=== PATIENT | female | born 1955 | race Caucasian/White ===

== ENCOUNTER 2018-02-28 11:15 | Day surgery (SDC) | payer MEDICAID ==
[~2018-02-28] VITALS: Ht 154.9 cm; Wt 90.0 kg
[2018-02-28] VITALS (7 sets, daily range): BP systolic 136–189; BP diastolic 74–111
[~2018-02-28 11:15] MED LIST: AMOX-422 PO; FLUT1DIS4 INH; NO HOME MEDS; PRED10TA23 PO; famotidine 20mg tablet PO ONE; ringers solution, lacted 1,000 ML IV SCH
[2018-02-28] MEDS ORDERED: cefazolin/dext.iso 2gm/100 ML IV ONE (11:52)
[2018-02-28] MEDS ORDERED: acetaminophen 325mg tablet PO PRN (12:35)
[2018-02-28 13:21] LABS: BASOPHILS % (AUTO) 0.1 % (0-1); EOSINOPHILS # (AUTO) 0.1 X10'3 (0-0.9); EOSINOPHILS % (AUTO) 1.4 % (0-6); LYMPHOCYTES % (AUTO) 9.7 % (21-51); MEAN CORPUSCULAR HEMOGLOBIN 27.7 PG (27.0-31.0); MEAN CORPUSCULAR HGB CONC 32.3 % (33.0-36.5); MEAN PLATELET VOLUME 8.9 FL (7.4-10.4); MONOCYTES # (AUTO) 0.2 X10'3 (0-0.9); MONOCYTES % (AUTO) 1.7 % (2-12); NEUTROPHILS # (AUTO) 8.8 X10'3 (1.8-7.7); NEUTROPHILS % (AUTO) 87.1 % (42-75); PRE OP HEMATOCRIT 44.4 % (35.0-45.0); PRE OP HEMOGLOBIN 14.3 g/dL (12.0-16.0); PRE OP PLATELET COUNT 222 X10'3 (140-440); RED BLOOD COUNT 5.16 X10'6 (4.20-5.60); RED CELL DISTRIBUTION WIDTH 19.3 % (11.5-14.5)
[2018-02-28 13:36] LABS: ANISOCYTOSIS 2+; LARGE PLATELETS FEW; PLATELET ESTIMATE NORMAL
[2018-02-28 13:39] LABS: ALBUMIN 3.2 G/DL (3.4-5.0); ALBUMIN/GLOBULIN RATIO 0.8 (1.1-1.5); ALKALINE PHOSPHATASE 102 IU/L (46-116); BLOOD UREA NITROGEN 20 MG/DL (7-18); BUN/CREATININE RATIO 20.8 (6.6-38.0); CALCIUM 8.6 MG/DL (8.5-10.1); CHLORIDE 102 MMOL/L (99-107); CREATININE 0.96 MG/DL (0.40-0.90); PRE OP ALT 27 U/L (30-65); PRE OP ANION GAP 7 (8-16); PRE OP AST 16 U/L (10-37); PRE OP BILIRUB, TOTAL 0.8 MG/DL (0.0-1.0); PRE OP POTASSIUM 4.3 MMOL/L (3.4-5.1); PRE OP SODIUM 139 MMOL/L (135-145); TOTAL CARBON DIOXIDE 30.2 MMOL/L (24-32); eGFR 59 ML/MIN
[2018-02-28 13:41] LABS: PRE OP GLUCOSE 207 MG/DL (70-104)
[2018-02-28] MEDS ORDERED: LIDOcaine 1% 30ml preserv. free vial ONE (13:58)
[2018-02-28] MEDS ORDERED: ringers solution, lacted 1,000 ML IV SCH (14:19)
[2018-02-28] MEDS ORDERED: fentaNYL/PF 50MCG/1 ML 2ML syringe IV PRN ×2 (14:20)
[2018-02-28] MEDS ORDERED: labetalol 20mg/4ml (5mg/ml) syringe IV PRN (14:20)
[2018-02-28] MEDS ORDERED: hydrALAZINE 20mg/ml inj. IV PRN (14:20)
[2018-02-28] MEDS ORDERED: meperidine/PF 25mg/ml syringe IV PRN ×2 (14:20)
[2018-02-28] MEDS ORDERED: ondansetron/PF 4mg/2ml inj IV PRN (14:20)
[2018-02-28] MEDS ORDERED: fentaNYL/PF 50MCG/1 ML 2ML syringe ONE (14:22)
[2018-02-28] MEDS ORDERED: BUPIVAcaine/PF 2.5mg/ml (0.25%) 10ml vial ONE (14:22)
[2018-02-28] MEDS ORDERED: LIDOcaine 2% (20mg/ml) 5ml vial ONE (14:22)
[2018-02-28] MEDS ORDERED: propofol inj 20 ML IV ONE (14:22)
[2018-02-28] MEDS ORDERED: midazolam 2 mg/2 ml injection ONE (14:22)
[2018-02-28] MEDS ORDERED: dexamethasone sod phosphate 10mg/ml inj ONE (14:31)
[2018-02-28] MEDS ORDERED: sevoflurane 250ml liquid IH ONE (14:31)
[2018-02-28] MEDS ORDERED: ondansetron/PF 4mg/2ml inj ONE (14:54)
== END 2018-02-28 16:23 | disposition home or self-care (01) ==
LOC: PAS 11:15
PROVIDERS: ATTEND Surgery
DX: M31.6 Other giant cell arteritis (principal); J44.9 Chronic obstructive pulmonary disease, unspecified; E66.9 Obesity, unspecified; I25.10 Atherosclerotic heart disease of native coronary artery without angina pectoris; I25.2 Old myocardial infarction; K21.9 Gastro-esophageal reflux disease without esophagitis; L40.50 Arthropathic psoriasis, unspecified; I10 Essential (primary) hypertension; I34.1 Nonrheumatic mitral (valve) prolapse; F41.8 Other specified anxiety disorders; Z86.74 Personal history of sudden cardiac arrest; Z87.01 Personal history of pneumonia (recurrent); Z87.09 Personal history of other diseases of the respiratory system; Z85.41 Personal history of malignant neoplasm of cervix uteri; Z79.2 Long term (current) use of antibiotics; Z68.37 Body mass index [BMI] 37.0-37.9, adult; Z90.710 Acquired absence of both cervix and uterus; Z90.89 Acquired absence of other organs; Z86.69 Personal history of other diseases of the nervous system and sense organs; Z87.891 Personal history of nicotine dependence; Z88.5 Allergy status to narcotic agent; Z91.048 Other nonmedicinal substance allergy status; Z79.899 Other long term (current) drug therapy; Z98.890 Other specified postprocedural states
CPT/HCPCS: 36415; 37609; 80053; 85025; 93005; A6258; J0690; J1100; J2001; J2250; J2405; J2704; J3010; J3490; A6251; A7000; J7120

== ENCOUNTER 2019-06-14 10:59 | Day surgery (SDC) | payer MEDICAID ==
[~2019-06-14] VITALS: Ht 154.9 cm; Wt 91.1 kg
[~2019-06-14 10:59] MED LIST changes: -famotidine 20mg tablet PO ONE; -ringers solution, lacted 1,000 ML IV SCH
[2019-06-14] MEDS ORDERED: normal saline 1000ml 1,000 ML IV PRN (11:25)
[2019-06-14] MEDS ORDERED: LORA-660 PO (11:28)
[2019-06-14] MEDS ORDERED: METF-438 PO (11:29)
[2019-06-14] MEDS ORDERED: PRED1TAB PO (11:31)
[2019-06-14] MEDS ORDERED: METH2.5T PO (11:32)
[2019-06-14] MEDS ORDERED: LORA-269 PO (11:35)
[2019-06-14] MEDS ORDERED: FOLIC ACID PO (11:41)
[2019-06-14] MEDS ORDERED: AMA1T PO (11:41)
[2019-06-14] MEDS ORDERED: ZOLP5TAB8 PO (11:42)
[2019-06-14] MEDS ORDERED: ADV50250 IH (11:43)
[2019-06-14 11:45] VITALS: BP 142/71
[2019-06-14 11:45] LABS: BASOPHILS # (AUTO) 0.1 X10'3 (0-0.2); BASOPHILS % (AUTO) 0.6 % (0-1); EOSINOPHILS # (AUTO) 0.1 X10'3 (0-0.9); EOSINOPHILS % (AUTO) 0.7 % (0-6); HEMATOCRIT 42.5 % (35.0-45.0); HEMOGLOBIN 14.5 g/dl (12.0-16.0); LYMPHOCYTES # (AUTO) 1.4 X10'3 (1.1-4.8); LYMPHOCYTES % (AUTO) 13.9 % (21-51); MEAN CORPUSCULAR HEMOGLOBIN 30.5 PG (27.0-31.0); MEAN CORPUSCULAR HGB CONC 34.1 g/dL (33.0-36.5); MEAN CORPUSCULAR VOLUME 89.4 FL (78-98); MEAN PLATELET VOLUME 8.4 FL (7.4-10.4); MONOCYTES # (AUTO) 0.6 X10'3 (0-0.9); MONOCYTES % (AUTO) 5.5 % (2-12); NEUTROPHILS # (AUTO) 8.1 X10'3 (1.8-7.7); NEUTROPHILS % (AUTO) 79.3 % (42-75); PLATELET COUNT 305 X10'3 (140-440); RED BLOOD COUNT 4.75 X10'6 (4.20-5.60); RED CELL DISTRIBUTION WIDTH 14.2 % (11.5-14.5); WHITE BLOOD COUNT 10.2 X10'3 (4.5-11.0)
[2019-06-14 11:53] LABS: ALBUMIN 3.2 G/DL (3.4-5.0); ANION GAP 8 (8-16); BLOOD UREA NITROGEN 14 MG/DL (7-18); BUN/CREATININE RATIO 15.9 (6.6-38.0); CALCIUM 8.7 MG/DL (8.5-10.1); CHLORIDE 107 MMOL/L (99-107); CREATININE 0.88 MG/DL (0.40-0.90); GLUCOSE 136 MG/DL (70-104); POTASSIUM 4.2 MMOL/L (3.5-5.1); SODIUM 144 MMOL/L (135-145); TOTAL CARBON DIOXIDE 28.7 MMOL/L (24-32); eGFR 65 ML/MIN
[2019-06-14] MEDS ORDERED: FLU VACC QS2019-20 36MOS UP/PF 60 MCG/0.5 ML SYRINGE IMVAC ONE (12:05)
[2019-06-14] MEDS ORDERED: pneumococcal 23-VAL P-sac vacc 25 mcg/0.5ml vial IMVAC ONE (12:05)
[2019-06-14] MEDS ORDERED: LIDOcaine 1% (10mg/ml)w/preservative injection 20ml MDV ONE (13:19)
[2019-06-14] MEDS ORDERED: fentaNYL/PF 50MCG/1 ML 2ML syringe ONE ×2 (13:19→13:48)
[2019-06-14] MEDS ORDERED: midazolam 2 mg/2 ml injection ONE ×2 (13:19→13:48)
[2019-06-14] MEDS ORDERED: heparin sodium, porcine/PF 100unit/ml 5ML syringe ONE (13:24)
[2019-06-14 14:30] VITALS: BP 152/71
[2019-06-14 14:45] VITALS: BP 141/62
[2019-06-14 15:00] VITALS: BP 157/74
[2019-06-14 15:25] VITALS: BP 153/67
== END 2019-06-14 15:35 | disposition home or self-care (01) ==
LOC: SSTAY O 10:59
PROVIDERS: ATTEND Radiology Diagnostic Radiology
DX: C50.512 Malignant neoplasm of lower-outer quadrant of left female breast (principal); J44.9 Chronic obstructive pulmonary disease, unspecified; E09.39 Drug or chemical induced diabetes mellitus with other diabetic ophthalmic complication; H42 Glaucoma in diseases classified elsewhere; T38.0X5A Adverse effect of glucocorticoids and synthetic analogues, initial encounter; Y92.89 Other specified places as the place of occurrence of the external cause; Z90.710 Acquired absence of both cervix and uterus; Z98.890 Other specified postprocedural states; Z23 Encounter for immunization; Z91.09 Other allergy status, other than to drugs and biological substances; Z88.5 Allergy status to narcotic agent; Z79.899 Other long term (current) drug therapy; Z79.84 Long term (current) use of oral hypoglycemic drugs; Z87.891 Personal history of nicotine dependence; Z90.12 Acquired absence of left breast and nipple
CPT/HCPCS: 36415; 36561; 76937; 77001; 80048; 85025; 90471; 90732; 99152; 99153; J1642; J2001; J2250; J3010; J7030; Q2037

== ENCOUNTER 2019-06-24 13:16 | Emergency (ER) | payer MEDICAID ==
[~2019-06-24] VITALS: Ht 160 cm; Wt 83.0 kg
[~2019-06-24 13:16] MED LIST changes: +ADV50250 IH; +AMA1T PO; -AMOX-422 PO; -FLUT1DIS4 INH; +FOLIC ACID PO; +LORA-269 PO; +LORA-660 PO; +METF-438 PO; +METH2.5T PO; -NO HOME MEDS; -PRED10TA23 PO; +PRED1TAB PO; +ZOLP5TAB8 PO
[2019-06-24] MEDS ORDERED: piperacillin/tazo 3.375gm/50ml 50 ML IV ONE (13:45)
[2019-06-24] MEDS ORDERED: normal saline 1000ML IV soln IVB ONE (13:45)
[2019-06-24 14:11] LABS: BASOPHILS # (AUTO) 0.1 X10'3 (0-0.2); BASOPHILS % (AUTO) 0.7 % (0-1); EOSINOPHILS # (AUTO) 0.1 X10'3 (0-0.9); EOSINOPHILS % (AUTO) 1.1 % (0-6); HEMATOCRIT 43.7 % (35.0-45.0); HEMOGLOBIN 14.8 g/dl (12.0-16.0); LYMPHOCYTES # (AUTO) 0.8 X10'3 (1.1-4.8); LYMPHOCYTES % (AUTO) 9.4 % (21-51); MEAN CORPUSCULAR HEMOGLOBIN 30.4 PG (27.0-31.0); MEAN CORPUSCULAR HGB CONC 33.8 g/dL (33.0-36.5); MEAN CORPUSCULAR VOLUME 90.1 FL (78-98); MEAN PLATELET VOLUME 8.3 FL (7.4-10.4); MONOCYTES # (AUTO) 1.2 X10'3 (0-0.9); MONOCYTES % (AUTO) 13.6 % (2-12); NEUTROPHILS # (AUTO) 6.4 X10'3 (1.8-7.7); NEUTROPHILS % (AUTO) 75.2 % (42-75); PLATELET COUNT 247 X10'3 (140-440); RED BLOOD COUNT 4.85 X10'6 (4.20-5.60); RED CELL DISTRIBUTION WIDTH 14.2 % (11.5-14.5); WHITE BLOOD COUNT 8.6 X10'3 (4.5-11.0)
[2019-06-24 14:26] LABS: ALANINE AMINOTRANSFERASE 17 U/L (12-78); ALBUMIN 3.3 G/DL (3.4-5.0); ALBUMIN/GLOBULIN RATIO 0.9 (1.1-1.5); ALKALINE PHOSPHATASE 100 IU/L (46-116); ANION GAP 9 (8-16); ASPARTATE AMINO TRANSFERASE 13 U/L (10-37); BILIRUBIN,TOTAL 0.3 MG/DL (0.1-1.0); BLOOD UREA NITROGEN 16 MG/DL (7-18); CALCIUM 8.6 MG/DL (8.5-10.1); CHLORIDE 105 MMOL/L (99-107); CREATININE 1.07 MG/DL (0.40-0.90); GLUCOSE 96 MG/DL (70-104); MAGNESIUM 1.6 MG/DL (1.5-2.4); SODIUM 142 MMOL/L (135-145); TOTAL CARBON DIOXIDE 27.8 MMOL/L (24-32); TOTAL PROTEIN 7.1 G/DL (6.4-8.2); eGFR 52 ML/MIN
[2019-06-24 15:14] LABS: CLARITY,URINE CLEAR (Clear); COLOR,URINE STRAW (Yellow); GLUCOSE, URINE NEGATIVE (Neg); KETONES,URINE NEGATIVE (Neg); LEUKOCYTE ESTERASE ,URINE NEGATIVE (Neg); NITRITES, URINE NEGATIVE (Neg); OCCULT BLOOD,URINE NEGATIVE (Neg); PH,URINE 5.5 (4.8-8.0); PROTEIN,URINE NEGATIVE (Neg); UA COLLECTION TYPE CLN CATCH MIDSTREAM; UROBILINOGEN,URINE 0.2 E.U/dL (0.2-1.0)
[2019-06-24 16:00] VITALS: BP 147/63
== END 2019-06-24 17:26 | disposition home or self-care (01) ==
LOC: ER 13:16
DX: R50.9 Fever, unspecified (principal); R07.89 Other chest pain; I10 Essential (primary) hypertension; I25.2 Old myocardial infarction; Z88.5 Allergy status to narcotic agent; Z91.09 Other allergy status, other than to drugs and biological substances; Z79.84 Long term (current) use of oral hypoglycemic drugs; Z79.899 Other long term (current) drug therapy
CPT/HCPCS: 36415; 71045; 80053; 81003; 83605; 83735; 84145; 85025; 87040; 93005; 96365; 99285; J2543; J7030

== ENCOUNTER 2019-06-28 07:51 | Inpatient (IN) | payer MEDICAID ==
[~2019-06-28] VITALS: Ht 157.5 cm; Wt 86.4 kg
[2019-06-28] MEDS ORDERED: albuterol 2.5 MG/3 ML nebule CONTNEB PRN ×2 (08:00→09:40)
[2019-06-28 08:41] LABS: BASOPHILS # (AUTO) 0.1 X10'3 (0-0.2); BASOPHILS % (AUTO) 0.3 % (0-1); EOSINOPHILS % (AUTO) 0.1 % (0-6); HEMATOCRIT 41.4 % (35.0-45.0); HEMOGLOBIN 13.8 g/dl (12.0-16.0); LYMPHOCYTES # (AUTO) 1.5 X10'3 (1.1-4.8); LYMPHOCYTES % (AUTO) 4.8 % (21-51); MEAN CORPUSCULAR HEMOGLOBIN 29.8 PG (27.0-31.0); MEAN CORPUSCULAR HGB CONC 33.3 g/dL (33.0-36.5); MEAN CORPUSCULAR VOLUME 89.6 FL (78-98); MEAN PLATELET VOLUME 8.4 FL (7.4-10.4); MONOCYTES # (AUTO) 0.4 X10'3 (0-0.9); MONOCYTES % (AUTO) 1.2 % (2-12); NEUTROPHILS # (AUTO) 29.5 X10'3 (1.8-7.7); NEUTROPHILS % (AUTO) 93.6 % (42-75); PLATELET COUNT 237 X10'3 (140-440); RED BLOOD COUNT 4.62 X10'6 (4.20-5.60); RED CELL DISTRIBUTION WIDTH 14.2 % (11.5-14.5)
[2019-06-28 08:42] LABS: WHITE BLOOD COUNT 31.5 X10'3 (4.5-11.0)
[2019-06-28 08:53] LABS: ALANINE AMINOTRANSFERASE 23 U/L (12-78); ALBUMIN 3.3 G/DL (3.4-5.0); ALBUMIN/GLOBULIN RATIO 0.8 (1.1-1.5); ALKALINE PHOSPHATASE 85 IU/L (46-116); ANION GAP 7 (8-16); ASPARTATE AMINO TRANSFERASE 27 U/L (10-37); BILIRUBIN,TOTAL 0.3 MG/DL (0.1-1.0); BLOOD UREA NITROGEN 20 MG/DL (7-18); BUN/CREATININE RATIO 21.7 (6.6-38.0); CALCIUM 8.9 MG/DL (8.5-10.1); CHLORIDE 108 MMOL/L (99-107); CREATININE 0.92 MG/DL (0.40-0.90); GLUCOSE 90 MG/DL (70-104); SODIUM 141 MMOL/L (135-145); TOTAL CARBON DIOXIDE 25.9 MMOL/L (24-32); TOTAL PROTEIN 7.2 G/DL (6.4-8.2); eGFR 62 ML/MIN
[2019-06-28] MEDS ORDERED: CefTRIAXone/D5W-Rocephin 1gm 50 ML IV ONE (09:20)
[2019-06-28 09:21] LABS: PLATELET ESTIMATE NORMAL; TOTAL CELLS COUNTED 100
[2019-06-28] MEDS ORDERED: ketorolac tromethamine 15mg/ml inj. IV ONE ×2 (09:30→20:50)
[2019-06-28] MEDS ORDERED: dexamethasone sod phosphate 10mg/ml inj IV STA (09:37)
[2019-06-28] MEDS ORDERED: magnesium 2GM in 50ml NS 50 ML IV ONE (09:40)
--- NOTE | 2019-06-28 09:58 | NUR ---
Dr Saab stated that fluids 30 mL/kg were unneccessary due to LA of 2.0 and stable vital signs.
[2019-06-28] MEDS ORDERED: ONDA8TAB6 PO (10:04)
[2019-06-28] MEDS ORDERED: PROC-8 PO (10:04)
[2019-06-28] MEDS ORDERED: magnesium 2GM in 50ml NS 50 ML IV PRN (10:15)
[2019-06-28] MEDS ORDERED: potassium Cl 20 mEq SR tablet PO PRN ×2 (10:15)
[2019-06-28] MEDS ORDERED: magnesium Cl slow-release 64mg tablet PO PRN (10:15)
[2019-06-28] MEDS: ipratropium 0.5 MG/2.5ML nebule IH PRN (10:15)
[2019-06-28] MEDS ORDERED: magnesium 4gm in 100ml NS 100 ML IV PRN (10:15)
[2019-06-28] MEDS ORDERED: potassium CL 10mEq/100ml bag 100 ML IV PRN ×2 (10:15)
[2019-06-28] MEDS ORDERED: FOLI0.4T14 PO (10:33)
[2019-06-28] MEDS ORDERED: METF-436 PO (10:36)
[2019-06-28 12:29] LABS: HEMOGLOBIN A1C 5.5 % (4.5-6.2)
[2019-06-28] MEDS ORDERED: GLIM2TAB6 PO (12:36)
[2019-06-28 13:14] VITALS: BP 148/73
--- NOTE | 2019-06-28 13:14 | NUR ---
DM consult: Pt with A1c 5.5, DM education not warranted at this time. Will continue to follow. Addendum: 06/28/19 at [address] Amended: Links added.
--- NOTE | 2019-06-28 13:15 | NUR ---
pt arrived to 3023B from ER on stretcher. Ambulated to bed from stretcher independently without difficulty. Pt SOB and RR high with activity. O2 sat 92% on RA at rest. Lungs course to auscultation. at bedside. Oriented pt to unit, call kern provided.
--- NOTE | 2019-06-28 14:45 | NUR ---
Dr. Benson at bedside. Pt asking about her home meds, she has not taken them today. MD aware med rec is complete and she said she will look at it. Addendum: 06/28/19 at 1738 by Barbara Oneill RN JEWEL STRINGER meds ordered.
[2019-06-28 15:00] VITALS: BP 142/56
--- NOTE | 2019-06-28 17:37 | NUR ---
gerber Benson- pt met hypoglycemic protocol @9676 for BG 229. Need order for insulin please. awaiting response. Addendum: 06/28/19 at 1827 by Barbara Oneill RN no response from 2nd page sent.
--- NOTE | 2019-06-28 18:27 | NUR ---
Problems reprioritized. Patient report given, questions answered & plan of care reviewed with AMADOR Mtz
[2019-06-28] MEDS ORDERED: dextrose ORAL solution 15 GM/59 ML bottle PO PRN ×2 (18:30)
[2019-06-28] MEDS ORDERED: glucagon, human recombinant 1mg kit SUBCUT PRN (18:30)
[2019-06-28] MEDS ORDERED: dextrose 50%-water 50ml dispensing syringe IV PRN ×2 (18:30)
--- NOTE | 2019-06-28 18:31 | NUR ---
called back and stated ok for hypoglycemic protocol. Protocol ordered.
--- NOTE | 2019-06-28 18:35 | NUR ---
Patient in room PCU 3023. I have received report from KELLY ENGLISH and had the opportunity to ask questions and assume patient care.
[2019-06-28 19:00] VITALS: BP 126/61
[2019-06-28] MEDS: insulin Lispro (HumaLOG) vial - multi-dose SQ SCH (19:24)
[2019-06-28] MEDS: K and/or MAG REPLACEMENT MC SCH (20:00)
[2019-06-28] MEDS: methylPREDNISolone sod succ/PF 40mg inj. IV SCH (20:32)
[2019-06-28 23:00] VITALS: BP 153/65
[2019-06-29 03:00] VITALS: BP 133/69
[2019-06-29 06:00] VITALS: BP 132/68
--- NOTE | 2019-06-29 06:00 | NUR ---
Patient in room PCU 3023. I have received report from Zita ENGLISH and had the opportunity to ask questions and assume patient care.
--- NOTE | 2019-06-29 06:37 | NUR ---
Problems reprioritized. Patient report given, questions answered & plan of care reviewed with VINEET ENGLISH.
[2019-06-29 07:04] LABS: BASOPHILS % (AUTO) 0 % (0-1); EOSINOPHILS % (AUTO) 0 % (0-6); HEMATOCRIT 37.8 % (35.0-45.0); HEMOGLOBIN 12.6 g/dl (12.0-16.0); LYMPHOCYTES # (AUTO) 0.5 X10'3 (1.1-4.8); LYMPHOCYTES % (AUTO) 1.4 % (21-51); MEAN CORPUSCULAR HGB CONC 33.3 g/dL (33.0-36.5); MEAN CORPUSCULAR VOLUME 89.9 FL (78-98); MEAN PLATELET VOLUME 9.5 FL (7.4-10.4); MONOCYTES # (AUTO) 0.4 X10'3 (0-0.9); MONOCYTES % (AUTO) 1.1 % (2-12); NEUTROPHILS # (AUTO) 32.1 X10'3 (1.8-7.7); NEUTROPHILS % (AUTO) 97.5 % (42-75); PLATELET COUNT 194 X10'3 (140-440)
[2019-06-29 07:12] LABS: ANION GAP 5 (8-16); BLOOD UREA NITROGEN 23 MG/DL (7-18); CALCIUM 8.5 MG/DL (8.5-10.1); CHLORIDE 108 MMOL/L (99-107); CREATININE 0.92 MG/DL (0.40-0.90); GLUCOSE 115 MG/DL (70-104); MAGNESIUM 2.2 MG/DL (1.5-2.4); POTASSIUM 4.8 MMOL/L (3.5-5.1); SODIUM 141 MMOL/L (135-145); TOTAL CARBON DIOXIDE 27.6 MMOL/L (24-32); eGFR 62 ML/MIN
[2019-06-29 07:26] LABS: TOTAL CELLS COUNTED 100; TOXIC GRANULATION 3+; TOXIC VACUOLATION FEW
[2019-06-29 07:28] LABS: PLATELET ESTIMATE NORMAL
[2019-06-29] MEDS: K and/or MAG REPLACEMENT MC SCH ×2 (08:00→20:00)
[2019-06-29] MEDS: azithromycin/NS 500mg/250ml 250 ML IV SCH (08:00)
[2019-06-29] MEDS: methylPREDNISolone sod succ/PF 40mg inj. IV SCH ×2 (08:23→19:16)
[2019-06-29] MEDS: folic acid 1mg tablet PO SCH (08:23)
[2019-06-29] MEDS: loratadine 10mg tablet PO SCH (08:23)
[2019-06-29] MEDS: CefTRIAXone/D5W-Rocephin 1gm 50 ML IV SCH (08:26)
[2019-06-29] MEDS: ipratropium 0.5 MG/2.5ML nebule IH PRN (08:54)
[2019-06-29] MEDS: insulin Lispro (HumaLOG) vial - multi-dose SQ SCH ×3 (09:21→19:26)
[2019-06-29] MEDS ORDERED: furosemide 40mg/4ml inj IV ONE (10:40)
[2019-06-29] MEDS ORDERED: ketorolac tromethamine 15mg/ml inj. IM PRN (10:40)
[2019-06-29 11:00] VITALS: BP 138/56
[2019-06-29] MEDS: ketorolac tromethamine 15mg/ml inj. IV PRN (11:15)
[2019-06-29] MEDS ORDERED: ipratropium/albuterol 3ml nebule NEB PRN (14:10)
[2019-06-29] MEDS: ipratropium/albuterol 3ml nebule NEB SCH ×3 (14:28→23:37)
--- NOTE | 2019-06-29 14:44 | NUR ---
Attempted to call [facility] to obtain information re: chemo treatment and post treatment medication. I was transferred multiple times and ended up leaving a voicemail for Dr. Jansen's nurse. A detailed message with call back number was left. Per recorded message, mailbox is monitored [email or web address] and calls will be returned based on urgency.
[2019-06-29 15:00] VITALS: BP 139/54
--- NOTE | 2019-06-29 15:00 | NUR ---
Received call back from Funmi from [facility] and was faxed the last note Dr. Jansen had put in pt. chart. Funmi also provided information that patient chemo treatment is as goes... -Doxorubicin and cyclophosphamide are given on the same day, every 2 weeks, for 4 treatments/cycles. -The day after each treatment of doxorubicin and cyclophosphamide, patient receives Udenyca. -After patient has received entirety of the above treatments, she then gets Paclitaxel weekly for 12 weeks. If there is any discrepancy in the above information, call [facility] and speak with Funmi.
[2019-06-29 18:00] VITALS: BP 126/52
[2019-06-29] MEDS ORDERED: ipratropium 0.5 MG/2.5ML nebule IH ONE (18:30)
--- NOTE | 2019-06-29 18:30 | NUR ---
Patient in room PCU 3023. I have received report from Kasandra ENGLISH and had the opportunity to ask questions and assume patient care.
--- NOTE | 2019-06-29 18:32 | NUR ---
Problems reprioritized. Patient report given, questions answered & plan of care reviewed with Paul RN.
[2019-06-29] MEDS: lactobacillus rhamnosus 10,000 MMU CELLS/CAPSULE PO SCH (19:15)
[2019-06-29] MEDS: zolpidem 5mg tablet PO PRN (19:16)
[2019-06-29 22:00] VITALS: BP 117/44
[2019-06-30 02:00] VITALS: BP 127/60
[2019-06-30] MEDS: ipratropium/albuterol 3ml nebule NEB SCH ×6 (03:49→23:32)
[2019-06-30 06:00] VITALS: BP 133/61
--- NOTE | 2019-06-30 06:03 | NUR ---
Problems reprioritized. Patient report given, questions answered & plan of care reviewed with Kasandra ENGLISH.
[2019-06-30 06:43] LABS: EOSINOPHILS % (AUTO) 0 % (0-6); HEMOGLOBIN 12.1 g/dl (12.0-16.0); LYMPHOCYTES # (AUTO) 0.3 X10'3 (1.1-4.8); MONOCYTES # (AUTO) 0.2 X10'3 (0-0.9); MONOCYTES % (AUTO) 0.8 % (2-12); NEUTROPHILS % (AUTO) 97.7 % (42-75)
[2019-06-30 06:46] LABS: BASOPHILS % (AUTO) 0 % (0-1); HEMATOCRIT 35.6 % (35.0-45.0); LYMPHOCYTES % (AUTO) 1.5 % (21-51); MEAN CORPUSCULAR HEMOGLOBIN 30.6 PG (27.0-31.0); MEAN CORPUSCULAR HGB CONC 34.1 g/dL (33.0-36.5); MEAN CORPUSCULAR VOLUME 89.6 FL (78-98); MEAN PLATELET VOLUME 9.4 FL (7.4-10.4); NEUTROPHILS # (AUTO) 22.3 X10'3 (1.8-7.7); PLATELET COUNT 168 X10'3 (140-440); RED BLOOD COUNT 3.97 X10'6 (4.20-5.60); RED CELL DISTRIBUTION WIDTH 14.1 % (11.5-14.5); WHITE BLOOD COUNT 22.9 X10'3 (4.5-11.0)
[2019-06-30 06:56] LABS: ALBUMIN 2.8 G/DL (3.4-5.0); ANION GAP 6 (8-16); BLOOD UREA NITROGEN 30 MG/DL (7-18); BUN/CREATININE RATIO 31.9 (6.6-38.0); CALCIUM 8.4 MG/DL (8.5-10.1); CHLORIDE 107 MMOL/L (99-107); CREATININE 0.94 MG/DL (0.40-0.90); GLUCOSE 132 MG/DL (70-104); MAGNESIUM 1.8 MG/DL (1.5-2.4); SODIUM 142 MMOL/L (135-145); TOTAL CARBON DIOXIDE 28.7 MMOL/L (24-32); eGFR 60 ML/MIN
--- NOTE | 2019-06-30 06:58 | NUR ---
Patient in room PCU 3023. I have received report from Paul RN and had the opportunity to ask questions and assume patient care.
[2019-06-30] MEDS ORDERED: furosemide 40mg/4ml inj IV ONE (07:15)
[2019-06-30] MEDS: K and/or MAG REPLACEMENT MC SCH ×2 (08:00→20:00)
[2019-06-30] MEDS: methylPREDNISolone sod succ/PF 40mg inj. IV SCH ×2 (08:27→19:19)
[2019-06-30] MEDS: CefTRIAXone/D5W-Rocephin 1gm 50 ML IV SCH (08:28)
[2019-06-30] MEDS: folic acid 1mg tablet PO SCH (08:28)
[2019-06-30] MEDS: lactobacillus rhamnosus 10,000 MMU CELLS/CAPSULE PO SCH ×2 (08:28→19:19)
[2019-06-30] MEDS: loratadine 10mg tablet PO SCH (08:28)
--- NOTE | 2019-06-30 10:00 | NUR ---
Received call back from gate watchman from [employer] left yesterday. From dietary stand point, OK to be off carb controlled diet. Will discuss with .
[2019-06-30 11:00] VITALS: BP 138/60
[2019-06-30] MEDS: azithromycin/NS 500mg/250ml 250 ML IV SCH (11:07)
--- NOTE | 2019-06-30 11:31 | NUR ---
Spoke with re: diet orders. Ok to DC carb controlled diet. Will continue heart healthy orders. Transit Proof Machine Operator Teresa made aware.
[2019-06-30] MEDS: insulin Lispro (HumaLOG) vial - multi-dose SQ SCH ×2 (13:53→18:37)
--- NOTE | 2019-06-30 14:00 | NUR ---
Student Medication Administration: For this medication-pass time frame, all medication were reviewed, dispensed, administered and documented per hospital policy by SN Pauline. Insulin adinistered by student nurse verified by AMADOR Henson & AMADOR Ndiaye.
--- NOTE | 2019-06-30 14:21 | NUR ---
PAGER ID: [phone] MESSAGE: [phone] Jean Laguna Waiting arrival of Nebulizer. No discharge orders in yet. Are we still planning to DC today? Monica [phone]
[2019-06-30 15:00] VITALS: BP 139/66
[2019-06-30 18:00] VITALS: BP 154/67
--- NOTE | 2019-06-30 18:13 | NUR ---
Patient in room PCU 3023. I have received report from Kasandra ENGLISH and had the opportunity to ask questions and assume patient care.
--- NOTE | 2019-06-30 18:31 | NUR ---
Problems reprioritized. Patient report given, questions answered & plan of care reviewed with Paul RN.
[2019-06-30] MEDS: ketorolac tromethamine 15mg/ml inj. IV PRN (18:38)
[2019-06-30] MEDS: zolpidem 5mg tablet PO PRN (20:57)
[2019-06-30 22:00] VITALS: BP 126/54
[2019-07-01 03:00] VITALS: BP 133/72
[2019-07-01] MEDS: ipratropium/albuterol 3ml nebule NEB SCH ×3 (03:00→11:44)
[2019-07-01 06:30] VITALS: BP 149/73
--- NOTE | 2019-07-01 06:30 | NUR ---
Problems reprioritized. Patient report given, questions answered & plan of care reviewed with Prudencio ENGLISH.
[2019-07-01 06:34] LABS: HEMOGLOBIN 12.4 g/dl (12.0-16.0); MONOCYTES # (AUTO) 0.1 X10'3 (0-0.9); PLATELET COUNT 139 X10'3 (140-440)
[2019-07-01 06:37] LABS: ALBUMIN 2.9 G/DL (3.4-5.0); ANION GAP 7 (8-16); BLOOD UREA NITROGEN 31 MG/DL (7-18); BUN/CREATININE RATIO 34.1 (6.6-38.0); CALCIUM 8.6 MG/DL (8.5-10.1); CHLORIDE 104 MMOL/L (99-107); CREATININE 0.91 MG/DL (0.40-0.90); GLUCOSE 207 MG/DL (70-104); MAGNESIUM 1.8 MG/DL (1.5-2.4); POTASSIUM 4.7 MMOL/L (3.5-5.1); SODIUM 141 MMOL/L (135-145); TOTAL CARBON DIOXIDE 30.1 MMOL/L (24-32); eGFR 62 ML/MIN
[2019-07-01 06:38] LABS: BASOPHILS % (AUTO) 0.1 % (0-1); EOSINOPHILS % (AUTO) 0.2 % (0-6); HEMATOCRIT 36.4 % (35.0-45.0); LYMPHOCYTES # (AUTO) 0.2 X10'3 (1.1-4.8); LYMPHOCYTES % (AUTO) 1.6 % (21-51); MEAN CORPUSCULAR HEMOGLOBIN 30.5 PG (27.0-31.0); MEAN CORPUSCULAR HGB CONC 34.1 g/dL (33.0-36.5); MEAN CORPUSCULAR VOLUME 89.5 FL (78-98); MEAN PLATELET VOLUME 9.4 FL (7.4-10.4); MONOCYTES % (AUTO) 0.8 % (2-12); NEUTROPHILS # (AUTO) 13.8 X10'3 (1.8-7.7); NEUTROPHILS % (AUTO) 97.3 % (42-75); RED BLOOD COUNT 4.07 X10'6 (4.20-5.60); RED CELL DISTRIBUTION WIDTH 14.3 % (11.5-14.5); WHITE BLOOD COUNT 14.2 X10'3 (4.5-11.0)
--- NOTE | 2019-07-01 06:45 | NUR ---
Patient in room PCU 3023. I have received report from AMADOR RODRIGUEZ and had the opportunity to ask questions and assume patient care.
[2019-07-01] MEDS: CefTRIAXone/D5W-Rocephin 1gm 50 ML IV SCH (07:54)
[2019-07-01] MEDS: loratadine 10mg tablet PO SCH (07:54)
[2019-07-01] MEDS: lactobacillus rhamnosus 10,000 MMU CELLS/CAPSULE PO SCH (07:54)
[2019-07-01] MEDS: folic acid 1mg tablet PO SCH (07:54)
[2019-07-01] MEDS: methylPREDNISolone sod succ/PF 40mg inj. IV SCH (07:54)
[2019-07-01] MEDS: azithromycin/NS 500mg/250ml 250 ML IV SCH (08:00)
[2019-07-01] MEDS: K and/or MAG REPLACEMENT MC SCH (08:00)
--- NOTE | 2019-07-01 09:00 | NUR ---
PT DECLINED INSULIN COVERAGE
[2019-07-01] MEDS ORDERED: PRED10TA23 PO (10:24)
[2019-07-01] MEDS ORDERED: IPRA3AMP9 IH ×2 (10:25→10:26)
[2019-07-01] MEDS ORDERED: AMOX-419 PO (10:27)
--- NOTE | 2019-07-01 12:05 | NUR ---
PT DISCHARGED IN STABLE CONDITION. ALL BELONGINGS SENT HOME WITH PT. PIV DC'D CANULA INTACT. PT TAKEN TO PRIVATE VEHICLE BY PCT IN WHEELCHAIR. MEDS CALLED TO [facility]. PT HAS NEBULIZER.
== END 2019-07-01 12:03 | disposition home or self-care (01) | DRG 140 ==
LOC: ER 07:52 → ED HOLD 10:11 → PCU 3S 12:45
PROVIDERS: ADMIT Internal Medicine; ATTEND Internal Medicine
DX: J44.1 Chronic obstructive pulmonary disease with (acute) exacerbation (principal); R65.10 Systemic inflammatory response syndrome (SIRS) of non-infectious origin without acute organ dysfunction; J22 Unspecified acute lower respiratory infection; L40.9 Psoriasis, unspecified; I10 Essential (primary) hypertension; F17.200 Nicotine dependence, unspecified, uncomplicated; F12.90 Cannabis use, unspecified, uncomplicated; E11.9 Type 2 diabetes mellitus without complications; Z88.5 Allergy status to narcotic agent; Z90.710 Acquired absence of both cervix and uterus; Z79.84 Long term (current) use of oral hypoglycemic drugs; Z85.3 Personal history of malignant neoplasm of breast; I25.2 Old myocardial infarction
CPT/HCPCS: 36415; 71045; 80048; 80053; 82948; 83036; 83605; 83735; 85025; 87040; 87070; 87081; 93005; 93306; 94640; 94760; 96365; 96375; 99285; G0378; J0456; J0696; J1100; J1815; J1885; J1940; J2920; J3475

== ENCOUNTER 2019-07-04 22:37 | Emergency (ER) | payer MEDICAID ==
[~2019-07-04 22:37] MED LIST changes: -ADV50250 IH; -AMA1T PO; +AMOX-419 PO; +FOLI0.4T14 PO; -FOLIC ACID PO; +GLIM2TAB6 PO; +IPRA3AMP9 IH; -LORA-269 PO; +METF-436 PO; -METF-438 PO; -METH2.5T PO; +PRED10TA23 PO; -PRED1TAB PO
== END 2019-07-05 00:16 | disposition left against medical advice (07) ==
LOC: ER 22:38
DX: R53.1 Weakness (principal); Z53.21 Procedure and treatment not carried out due to patient leaving prior to being seen by health care provider

== ENCOUNTER 2024-11-03 08:45 | Emergency (ER) | payer MEDICARE, MEDICAID ==
[~2024-11-03] VITALS: Ht 154.9 cm; Wt 73.3 kg
[~2024-11-03 08:45] MED LIST changes: -AMOX-419 PO; +LORA-657 PO; -LORA-660 PO; -PRED10TA23 PO
--- NOTE | 2024-11-03 09:27 | Physician Documentation ---
History of Present Illness ~ Chief Complaint: Mechanical Fall Stated Complaint: FALL HIT HEAD Time Seen by MD: 09:13 OK to notify your PCP?: Yes Primary Medical Doctor: Heladio Source: patient Mode of Arrival: POV Exam Limitations: no limitations HPI 69-year-old female with chief complaint headache x4 days. Patient had a ground level fall four days ago at home and states her headache has been getting progressively worse. She states she hit her left knee and then fell forward hitting her head on the floor. She did not lose consciousness she is not on thinners. She also reports she feels dizzy and is nauseated. No vision changes, chest pain, shortness of breath, abdominal pain. She also reports left knee pain with swelling and ecchymosis. She states she is unable to bear weight on her left leg due to pain in her knee. No prior surgeries on her knee. Tetanus within 5 Years?: No Medication Reconciliation Allergies: Coded Allergies: adhesive tape (Unverified Allergy, Intermediate, BLISTERS, 02/28/18) codeine (Verified Allergy, Unknown, 05/12/16) Scheduled Folic Acid (FOLIC ACID tablet), 1 MG PO DAILY, (Reported) Glimepiride (Glimepiride), 1 TAB PO DAILY, (Reported) Ipratropium/Albuterol Sulfate (IPRAT-ALBUT 0.5-3(2.5) MG/3 ML nebule), 3 ML IH Q4HWA Loratadine (Loratadine), 1 TAB PO DAILY, (Reported) Metformin Hcl (Metformin Hcl), 1 TAB PO Q12H, (Reported) Scheduled PRN Hydrocodone Bit/Acetaminophen 5/325 MG ([place] 5/325 MG), 1 TAB PO TID PRN PRN for pain Zolpidem Tartrate* (Ambien*), 2 TAB PO HS PRN for INSOMNIA, (Reported) Past Medical History Past Medical History: *CARDIOVASCULAR*, Hypertension, Myocardial Infarction, Psoriasis Past Surgical History: no surgical history Alcohol Use: None Drug Use: none Lives with: Family Lives In: Home Occupation: retired Review of Systems All Other Systems at this time: Reviewed and Negative Physical Exam Vital Signs: Temperature: 98.0, Source: Temporal, Heart Rate: 78, Respiratory Rate: 18, BP: 179/83, Pulse Oximetry: 99, Weight: 73.350 Oxygen Flow Rate: 0 Physical Exam Arrives GENERAL: Alert, mild distress due to pain. HEENT: NCAT, EOMI, PERRL, moist oral mucosa. NECK: Supple, trachea midline. CARDIAC: Regular rate and rhythm, no murmurs, rubs, or gallops. PV: Equal distal pulses. No lower extremity edema, cap refill less than 2 seconds. RESPIRATORY: Equal breath sounds, clear to auscultation bilaterally, no respiratory distress. GASTROINTESTINAL: Non distended, soft, nontender, No guarding or rebound. MUSCULOSKELETAL: Left knee: Effusion, ecchymosis, superficial abrasion over the patella, diffusely tender to palpation. Head: Ecchymosis over forehead, no swelling, no abrasions. Spine: Moving cspine normally, no ttp over spinous processes or paraspinal muscles. NEUROLOGICAL: Awake, alert, and oriented x 3. SKIN: Warm/dry, no pallor, no rash. PSYCH: Alert and appropriate. Affect congruent with mood. Speech is clear. Good eye contact. Progress Results/Orders Results/Orders Orders - GABRIEL LONG Ct Head (11/03/24 09:21) Completed Orders - GABRIEL LONG Ct Head (11/03/24 09:21) Dexamethasone Inj (Decadron 10mg/Ml Inj) (11/03/24 10:25) Ondansetron Disint. Tablet (Zofran Odt T (11/03/24 10:25) Medications Received in ER Medications (Trade) Dose Ordered Sig/Clara Route PRN Reason Start Time Stop Time Status Last Admin Dose Admin (Decadron 10mg/ ml inj) 10 mg ONCE STAT IM 11/03/24 10:25 11/03/24 10:27 DC 11/03/24 10:36 10 MG (Zofran ODT tablet) 4 mg ONCE ONCE PO 11/03/24 10:25 11/03/24 10:27 DC 11/03/24 10:36 4 MG Vital Signs 11/03/24 11/03/24 11/03/24 11/03/24 08:52 09:35 10:38 11:09 Temp 98.0 98.1 98.2 Pulse 78 66 77 Resp 18 16 16 B/P (MAP) 179/83 175/79 (111) 170/96 Pulse Ox 99 98 100 O2 Flow Rate 0 0 Medical Decision Making Differential Dx:Considerations: Include: Closed head injury, Cardiac injury, Fracture(s), Intraabdominal injury, Pneumothorax, Cerebral contusion, Pulmonary contusion, Spine injury, Tracheal injury, Urological injury, Vascular injury, Abrasion(s), Contusion(s), Foreign body(s), Hematoma(s), Laceration(s), Encephalopathy, Other Additional Comment Considering patient's headache has been getting progressively worse over the past four days and she did have trauma to her head we did a CT scan of her head to make sure that there was no evidence for a bleed. Considering patient had left knee pain that was making it difficult for her to put any weight on her left leg we x-rayed her knee. No fracture. Tibial plateau fracture considered possibility but this can be assessed for as outpatient if pain not improving. Departure Time of Disposition: 10:43 Disposition: 01 HOME / SELF CARE / HOMELESS Impression: Primary Impression: Headache Qualified Codes: R51.9 - Headache, unspecified Additional Impressions: Head trauma Qualified Codes: S09.90XA - Unspecified injury of head, initial encounter Knee pain, left Qualified Codes: M25.562 - Pain in left knee Knee effusion, left Ground-level fall Discharge Instructions: Fall Prevention in the Home, Adult, [id number] Additional Instructions: F/U WITH PCP ABOUT REFERRAL TO ORTHO DUE TO THE DEGENERATIVE JOINT DISEASE YOU HAVE IN YOUR LEFT KNEE GRADUALLY ADVANCE ACTIVITY TOLERATED NORCO SENT TO PHARMACY CT scan of her head no evidence for a bleed. Tibial plateau fracture considered possibility but this can be assessed for as outpatient if pain not improving. Xray negative. 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
--- NOTE | 2024-11-03 09:53 | RADIOLOGY REPORT ---
CLINICAL INDICATION: KNEE PAIN,LEFT TECHNIQUE: DI KNEE, COMP 4 VW MIN Comparison: None FINDINGS/IMPRESSION: : There is no evidence of acute fracture or dislocation. Soft tissues are unremarkable. Moderate to severe tricompartmental degenerative change.
--- NOTE | 2024-11-03 09:56 | RADIOLOGY REPORT ---
EXAM: CT CT HEAD INDICATION: GLF 4days ago with worsening cabrera, no thinners TECHNIQUE: CT of the head without intravenous contrast. Radiation Dose : 1. Head: CT Dose: CTDI volume is 52 mGy. Dose-length product is 950 mGy*cm The dose indicators for CT are the volume Computed Tomography (CT) Dose Index (CTDIvol) and the Dose Length Product (DLP), and are measured in units of mGy and mGy-cm, respectively. These indicators are not patient dose, but values generated from the CT scanner acquisition factors. The report includes radiation exposure data for exposures received during this examination. COMPARISON: None FINDINGS: There is no evidence of acute intracranial hemorrhage, extra-axial collection, mass effect, midline s hift, herniation or hydrocephalus. The ventricles, sulci and cisterns are age appropriate. The mancuso-white differentiation is intact. The visualized paranasal sinuses and mastoid air cells are clear. The surrounding soft tissues and osseous structures are unremarkable. IMPRESSION: No acute intracranial abnormality. Radiation optimization: All CT scans at this facility use at least one of these dose optimization kindra hniques: automated exposure control mA and/or kV adjustment per patient size (includes targeted exam s where dose is matched to clinical indication) or iterative reconstruction.
[2024-11-03] MEDS: ondansetron 4mg rapidly disintigrating tab PO ONE (10:36)
[2024-11-03] MEDS: dexamethasone sod phosphate 10mg/ml inj IM STA (10:36)
[2024-11-03] MEDS ORDERED: HYDR-3965 PO (10:45)
[2024-11-03 11:09] VITALS: BP 170/96; PULSE 77; RESP 16; TEMP 98.2; O2SAT 100
== END 2024-11-03 11:10 | disposition home or self-care (01) ==
LOC: ER 08:48
DX: S09.90XA Unspecified injury of head, initial encounter (principal); M25.462 Effusion, left knee; I10 Essential (primary) hypertension; I25.2 Old myocardial infarction; W18.30XA Fall on same level, unspecified, initial encounter; Y93.89 Activity, other specified; Y92.89 Other specified places as the place of occurrence of the external cause; Y99.8 Other external cause status
CPT/HCPCS: 70450; 73564; 96372; 99285; J1100